=== PATIENT | male | born 1960 | race Caucasian/White ===

== ENCOUNTER 2022-08-04 06:58 | Emergency (ER) | payer OTHER ==
[~2022-08-04] VITALS: Ht 165.1 cm; Wt 120.2 kg
[2022-08-04] MEDS ORDERED: LOSA25 PO (07:18)
[2022-08-04] MEDS ORDERED: METO50ER PO (07:18)
[2022-08-04 07:42] LABS: BASOPHILS ABSOLUTE AUTO 0.04 K/mm3 (0.00-0.23); BASOPHILS PERCENT AUTO 1 % (0-2); EOSINOPHILS ABSOLUTE AUTO 0.03 K/mm3 (0.00-0.68); EOSINOPHILS PERCENT AUTO 0 % (0-6); Hematocrit 48.1 % (37.0-53.0); Hemoglobin 16.9 g/dL (13.5-17.5); IMMATURE GRAN ABSOLUTE AUTO 0.02 K/mm3 (0.00-0.10); IMMATURE GRAN PERCENT AUTO 0 % (0-1); LYMPHOCYTES ABSOLUTE AUTO 1.54 K/mm3 (0.84-5.20); LYMPHOCYTES PERCENT AUTO 19 % (21-46); MONOCYTES ABSOLUTE AUTO 0.71 K/mm3 (0.16-1.47); MONOCYTES PERCENT AUTO 9 % (4-13); Mean Corpuscular HGB 30.6 pg (26.0-34.0); Mean Corpuscular HGB Conc 35.1 g/dL (31.5-36.5); Mean Corpuscular Volume 87 fL (80-100); Mean Platelet Volume 10.5 fL (9.1-12.4); NEUTROPHILS ABSOLUTE AUTO 5.77 K/mm3 (1.96-9.15); NEUTROPHILS PERCENT AUTO 71 % (41-73); Platelet Count 158 K/mm3 (150-400); RDW Coefficient Variation 13.2 % (11.7-14.2); Red Blood Cell Count 5.52 M/mm3 (4.30-5.90); White Blood Cell Count 8.11 K/mm3 (4.00-11.30)
[2022-08-04 08:03] LABS: Albumin, Blood 3.5 g/dL (3.4-5.0); Albumin/Globulin Ratio 0.9 (0.8-1.8); Bilirubin, Total 1.3 mg/dL (0.1-1.0); Bun/Creatinine Ratio 15.3 (12.0-20.0); Calcium, Blood 10.4 mg/dL (8.5-10.1); Creatinine, Blood 0.85 mg/dL (0.60-1.20); Globulin, Blood 3.9 g/dL (2.2-4.0); Potassium, Blood 4.2 mmol/L (3.5-5.5); Total Protein, Blood 7.4 g/dL (6.4-8.2)
[2022-08-04 09:36] LABS: Source, Urine Clean Catch
[2022-08-04 09:40] LABS: Appearance, Urine Clear (Clear); Bilirubin, Urine Neg (Neg); Blood, Urine 2+ (Neg); Color, Urine Yellow (P-Yellow); Glucose Qualitative, Urine 1+ (Neg); Ketones, Urine 2+ (Neg); Leukocyte Esterase, Urine Neg (Neg); Nitrite, Urine Neg (Neg); Protein, Urine Neg (Neg); Specific Gravity, Urine 1.015 (1.003-1.022); Urobilinogen, Urine NORM (Normal)
[2022-08-04 09:54] LABS: White Blood Cells, Urine 0-2 /hpf (0-5)
[2022-08-04 09:55] LABS: Red Blood Cells, Urine 0-2 /hpf (0-2); Squamous Epithelial Cells Rare /hpf (Few)
[2022-08-04 09:56] LABS: Bacteria Not Seen /hpf; Mucus Mod (0-Heavy)
[2022-08-04] MEDS ORDERED: IBUP600 PO (10:03)
[2022-08-04] MEDS ORDERED: ONDA4ODT MM (10:04)
[2022-08-04] MEDS ORDERED: HYDR1TAB94 PO (10:04)
[2022-08-04] MEDS ORDERED: TAMS.4ER PO (10:04)
[2022-08-05] MEDS ORDERED: OXYACE7.5T PO (20:34)
== END 2022-08-04 10:35 | disposition home or self-care (01) ==
LOC: ER 06:58
PROVIDERS: Emergency Medicine
DX: N13.2 Hydronephrosis with renal and ureteral calculous obstruction (principal); I10 Essential (primary) hypertension; E11.9 Type 2 diabetes mellitus without complications
CPT/HCPCS: 74177; 80053; 81001; 83605; 83690; 85025; J1170; J1885; J2270; J2405; J7030; Q9967

== ENCOUNTER 2022-08-05 15:44 | Emergency (ER) | payer OTHER ==
[~2022-08-05] VITALS: Ht 165.1 cm; Wt 120.2 kg
[~2022-08-05 15:44] MED LIST: HYDR1TAB94 PO; IBUP600 PO; LOSA25 PO; METO50ER PO; ONDA4ODT MM; TAMS.4ER PO
[2022-08-05] MEDS ORDERED: OXYACE7.5T PO (20:34)
== END 2022-08-05 20:46 | disposition home or self-care (01) ==
LOC: ER 15:44
DX: N13.2 Hydronephrosis with renal and ureteral calculous obstruction (principal); I10 Essential (primary) hypertension; E11.9 Type 2 diabetes mellitus without complications; Z79.899 Other long term (current) drug therapy
CPT/HCPCS: 36415; 76770; A9270; J1885; J2405; J7030

== ENCOUNTER 2024-06-26 12:16 | Day surgery (SDC) | payer OTHER ==
[~2024-06-26] VITALS: Ht 165.1 cm; Wt 117.3 kg
[~2024-06-26 12:16] MED LIST changes: +CELE200 PO; +JARDIANCE25 MG PO; +Lactated Ringer's 1,000 ML IV ONE; +OXYACE7.5T PO; +TOPIRAMATE ER25 M1 PO
[2024-06-26] MEDS ORDERED: propofoL 50 ML IV ONE (13:20)
[2024-06-26] MEDS ORDERED: Lactated Ringer's 1,000 ML IV ONE (13:23)
[2024-06-26 14:15] VITALS: BP 115/76
== END 2024-06-26 14:17 | disposition home or self-care (01) ==
LOC: ORSCSDS 12:16
PROVIDERS: Internal Medicine Gastroenterology
PROC: 0DBN8ZX Excision of Sigmoid Colon, Via Natural or Artificial Opening Endoscopic, Diagnostic (ICD-10-PCS; principal; 2024-06-26 14:00)
DX: Z85.038 Personal history of other malignant neoplasm of large intestine (principal); Z86.0101 Personal history of adenomatous and serrated colon polyps; K63.5 Polyp of colon; I10 Essential (primary) hypertension; E11.9 Type 2 diabetes mellitus without complications; E66.9 Obesity, unspecified; Z68.41 Body mass index [BMI] 40.0-44.9, adult; Z79.899 Other long term (current) drug therapy
CPT/HCPCS: 82947; 88305; J2704; J7120

== ENCOUNTER → 2025-02-14 | Outpatient (CLI) | payer OTHER ==
[~2025-02-14] MED LIST changes: -Lactated Ringer's 1,000 ML IV ONE
[2025-02-14 19:15] LABS: Microalb/Creat Ratio UR, Rand 4.883 mg/g (0.000-30.000); Microalbumin, Random Urine 7.08 mg/L (0.000-20.000)
== END ==
LOC: LAB SHORT 13:47 → LAB 13:47
PROVIDERS: Internal Medicine
DX: E11.65 Type 2 diabetes mellitus with hyperglycemia (principal)
CPT/HCPCS: 82043; 82570